=== PATIENT | male | born 1960 | race Caucasian/White ===

== ENCOUNTER → 2017-04-17 | Outpatient (CLI) | payer OTHER ==
[~2017-04-17] MED LIST: ALEV220C2 PO
[2017-04-17 10:34] LABS: MEAN CORPUSCULAR HEMOGLOBIN 29.4 pg (27.0-33.0); MEAN CORPUSCULAR HGB CONC 33.2 g/dl (32.0-36.5); MEAN CORPUSCULAR VOLUME 88.7 fl (80.0-96.0); PLATELET COUNT, AUTOMATED 211 10^3/uL (150-450); RED CELL DISTRIBUTION WIDTH 12.7 % (11.5-14.5); WHITE BLOOD COUNT 4.9 10^3/uL (4.0-10.0)
[2017-04-17 10:50] LABS: INR 1.04
[2017-04-17 11:05] LABS: ERYTHROCYTE SEDIMENTATION RATE 6 mm/hr (0-20)
[2017-04-17 11:23] LABS: ALBUMIN 4.1 GM/DL (3.2-5.2); ALBUMIN/GLOBULIN RATIO 1.37 (1.00-1.93); ALKALINE PHOSPHATASE 81 U/L (45-117); ALT/SGPT 29 U/L (12-78); ANION GAP 7 MEQ/L (8-16); AST/SGOT 20 U/L (7-37); BILIRUBIN,TOTAL 0.6 MG/DL (0.2-1.0); BLOOD UREA NITROGEN 15 MG/DL (7-18); CARBON DIOXIDE LEVEL 29 MEQ/L (21-32); CHLORIDE LEVEL 106 MEQ/L (98-107); CREATININE FOR GFR 0.87 MG/DL (0.70-1.30); GLOMERULAR FILTRATION RATE > 60.0 (>56); GLUCOSE, FASTING 103 MG/DL (70-105); POTASSIUM SERUM 4.2 MEQ/L (3.5-5.1); SODIUM LEVEL 142 MEQ/L (136-145); TOTAL PROTEIN 7.1 GM/DL (6.4-8.2)
--- NOTE | 2017-04-17 11:32 | ECGEPIP ---
Stationary ECG Study [facility] Test Date: 2017-04-17 Pat Name: JORGE MCKOY Department: Room: - Gender: M [employer]: VIRGEN : 1960 Requested By: Rell Bruner Order Number: [id number] Reading MD: Edmond Carbone Measurements Intervals [place] Rate: 72 P: 67 HI: 183 QRS: 60 QRSD: 97 T: 60 QT: 358 QTc: 392 Interpretive Statements SINUS RHYTHM Early repolarization. Within normal limits. No prior ECG available for comparison at the time of interpretation. Electronically Signed On 04-17-2017 11:31:47 EST by Edmond Carbone
--- NOTE | 2017-04-17 14:54 | REP ---
PA and lateral chest: Comparison is 10/08/2012. The lung [place] are clear. The cardiac size is normal The mady, mediastinum, and bony thorax are unremarkable. Impression: Negative PA and lateral chest. There are surgical clips in the abdominal right upper quadrant noted incidentally. There is no interval change. Signed by Lloyd Anaya MD 04/17/2017 02:46 P
== END ==
LOC: M ADMPAT 09:16
PROVIDERS: ATTEND Orthopaedic Surgery
DX: M17.12 Unilateral primary osteoarthritis, left knee (principal)

== ENCOUNTER 2017-06-11 05:58 | Inpatient (IN) | payer OTHER ==
[2017-06-11] MEDS ORDERED: ceFAZolin 2 GM/D5W 50 ML IV BAG (J0690 PER 500MG) As Ordered (06:07)
[2017-06-11] MEDS: LR 1,000 ML IV ×5 (06:30→21:20)
[2017-06-11] MEDS ORDERED: fentaNYL 100 MCG/2 ML INJECTION (J3010) As Ordered ×2 (06:43→07:49)
[2017-06-11] MEDS ORDERED: MIDAZOLAM INJ 2 MG/2 ML VIAL (J2250) As Ordered ×2 (06:43→07:49)
[2017-06-11] MEDS: MIDAZOLAM INJ 2 MG/2 ML VIAL (J2250) IV (07:19)
[2017-06-11] MEDS: fentaNYL 100 MCG/2 ML INJECTION (J3010) IV (07:19)
[2017-06-11] MEDS ORDERED: PROPOFOL 200 MG/20 ML VIAL As Ordered ×2 (07:49)
[2017-06-11] MEDS ORDERED: LIDOCAINE 2% INJ 100 MG/5 ML SDV (FOR ANES.) As Ordered (07:49)
[2017-06-11] MEDS: TRANEXAMIC ACID 100 MG/ML 10ML VIAL As Ordered (08:10)
[2017-06-11] MEDS: ceFAZolin 1GM INJ (J0690 PER 500MG) As Ordered (08:10)
[2017-06-11] MEDS: EPINEPHrine INJ 1 MG/ML 1ML AMP As Ordered (08:10)
[2017-06-11] MEDS: BUPIVACAINE LIPOSOME/PF 1.3% 20 ML VIAL (13.3MG/ML)(EXPAREL) As Ordered (08:11)
[2017-06-11] MEDS ORDERED: ONDANSETRON 4MG/2ML VIAL (J2405) As Ordered (08:20)
[2017-06-11] MEDS ORDERED: EPINEPHrine INJ 1 MG/ML 1ML AMP (08:59)
[2017-06-11] MEDS ORDERED: ROPIvacaine 0.5% 30 ML INJECTION (J2795 PER 1MG) (08:59)
[2017-06-11] MEDS ORDERED: EPIDURAL/PCA KEYS XX (09:30)
[2017-06-11] MEDS ORDERED: NALBUPHINE HCL 10 MG/ML AMP (J2300) IV (09:30)
[2017-06-11] MEDS ORDERED: NALOXONE INJ 0.4 MG/1 ML VIAL (J2310) IV (09:30)
[2017-06-11] MEDS ORDERED: diphenhydrAMINE INJ 50MG/ML VIAL (J1200) IV (09:30)
[2017-06-11] MEDS ORDERED: MORPHINE 1MG/ML IN 0.9% NACL 100ML IV BAG IV (09:30)
[2017-06-11] MEDS ORDERED: ACETAMINOPHEN TAB 650MG DOSE (2X325MG) PO (09:45)
[2017-06-11] MEDS ORDERED: fentaNYL 100 MCG/2 ML INJECTION (J3010) IV (09:45)
[2017-06-11] MEDS ORDERED: FLEET ENEMA PR (09:45)
[2017-06-11] MEDS ORDERED: PERCOCET 5MG/325MG TAB PO (09:45)
[2017-06-11] MEDS ORDERED: MORPHINE 10 MG/ML 1ML VIAL IV (09:45)
[2017-06-11] MEDS: ACETAMINOPHEN TAB 650MG DOSE (2X325MG) PO (11:32)
[2017-06-11] MEDS: ONDANSETRON 4MG/2ML VIAL (J2405) IV ×2 (11:40→18:30)
[2017-06-11] MEDS: METOCLOPRAMIDE INJ 10MG/2ML VIAL (J2765) IV (11:42)
[2017-06-11] MEDS: WARFARIN SOD 5 MG TAB PO (16:12)
[2017-06-12] MEDS ORDERED: PERCOCET 5MG/325MG TAB PO (06:45)
[2017-06-12] MEDS ORDERED: ONDANSETRON 4 MG TAB (S0181) PO (06:45)
[2017-06-12 07:14] LABS: HEMATOCRIT 38.2 % (42.0-52.0); HEMOGLOBIN 12.6 g/dl (14.0-18.0); MEAN CORPUSCULAR HEMOGLOBIN 28.8 pg (27.0-33.0); MEAN CORPUSCULAR VOLUME 87.4 fl (80.0-96.0); PLATELET COUNT, AUTOMATED 182 10^3/uL (150-450); RED BLOOD COUNT 4.37 10^6/uL (4.30-6.10); RED CELL DISTRIBUTION WIDTH 12.7 % (11.5-14.5); WHITE BLOOD COUNT 7.6 10^3/uL (4.0-10.0)
[2017-06-12] MEDS: ONDANSETRON 4MG/2ML VIAL (J2405) IV (08:54)
[2017-06-12] MEDS: MOM 30ML SUSPENSION UDC PO ×2 (09:18→13:54)
[2017-06-12] MEDS: SENOKOT S TAB PO (09:19)
[2017-06-12] MEDS: MIRALAX *UNIT DOSE* 17GM PACKET PO (09:19)
[2017-06-12] MEDS: PERCOCET 5MG/325MG TAB PO ×2 (09:40→13:55)
[2017-06-12 10:46] LABS: INR 1.56; PROTHROMBIN TIME 19.1 SECONDS (12.4-14.5)
[2017-06-12] MEDS: INFLUENZA QUADRIVALENT PF VACCINE 0.5ML SYRINGE (90686) IM (16:12)
[2017-06-12] MEDS ORDERED: WARFARIN SOD 5 MG TAB PO (17:00)
== END 2017-06-12 17:45 | disposition home health service (06) | DRG 470 ==
LOC: M OR 05:58 → M MS5PR 12:30
PROC: 0SRD0J9 Replacement of Left Knee Joint with Synthetic Substitute, Cemented, Open Approach (ICD-10-PCS; principal; 2017-06-11 07:30)
DX: M17.12 Unilateral primary osteoarthritis, left knee (principal)

== ENCOUNTER → 2017-06-28 | Outpatient (REF) | payer OTHER ==
[2017-06-28 11:19] LABS: INR 2.11; PROTHROMBIN TIME 24.4 SECONDS (12.4-14.5)
== END ==
LOC: M LABDRAW1 10:28
DX: Z79.01 Long term (current) use of anticoagulants (principal)

== ENCOUNTER → 2017-07-02 | Outpatient (REF) | payer OTHER ==
[2017-07-02 18:18] LABS: PROTHROMBIN TIME 22.4 SECONDS (12.4-14.5)
== END ==
LOC: M LABDRAW1 17:00
DX: Z79.01 Long term (current) use of anticoagulants (principal)

== ENCOUNTER → 2017-07-04 | Outpatient (REF) | payer OTHER ==
[2017-07-04 19:52] LABS: INR 1.45
== END ==
LOC: M LABDRAW1 17:04
DX: Z51.81 Encounter for therapeutic drug level monitoring (principal); Z79.01 Long term (current) use of anticoagulants

== ENCOUNTER → 2021-12-13 | Outpatient (CLI) | payer OTHER ==
[~2021-12-13] MED LIST changes: +COUM2.5T17 PO; +PERC5TAB12 PO
[2021-12-13 12:37] LABS: BASO # 0.1 10^3/uL (0.0-0.2); BASO % 1.4 % (0.0-1.0); EOS # 0.1 10^3/uL (0.0-0.5); EOS % 2.8 % (0.0-3.0); HEMATOCRIT 48.2 % (42.0-52.0); HEMOGLOBIN 16.1 g/dl (13.5-17.5); LYMPH # 0.9 10^3/uL (1.5-5.0); LYMPH % 18.1 % (24.0-44.0); MEAN CORPUSCULAR HGB CONC 33.4 g/dl (32.0-36.5); MEAN CORPUSCULAR VOLUME 89.8 fl (80.0-96.0); MONO # 0.4 10^3/uL (0.0-0.8); MONO % 7.3 % (2.0-8.0); NEUTROPHILS # 3.5 10^3/uL (1.5-8.5); NEUTROPHILS % 70.2 % (36.0-66.0); PLATELET COUNT, AUTOMATED 202 10^3/uL (150-450); RED BLOOD COUNT 5.37 10^6/uL (4.30-6.10)
[2021-12-13 13:24] LABS: ALBUMIN 4.1 GM/DL (3.2-5.2); ALT/SGPT 24 U/L (12-78); AMYLASE 39 U/L (25-115); BILIRUBIN,TOTAL 1.2 MG/DL (0.2-1.0); BLOOD UREA NITROGEN 13 MG/DL (7-18); CALCIUM LEVEL 9.2 MG/DL (8.8-10.2); CARBON DIOXIDE LEVEL 27 MEQ/L (21-32); CHLORIDE LEVEL 104 MEQ/L (98-107); CREATININE FOR GFR 1.04 MG/DL (0.70-1.30); GLOMERULAR FILTRATION RATE > 60.0 (>49); GLUCOSE, FASTING 93 MG/DL (70-100); LIPASE 105 U/L (73-393); POTASSIUM SERUM 3.7 MEQ/L (3.5-5.1); SODIUM LEVEL 138 MEQ/L (136-145); TOTAL PROTEIN 7.3 GM/DL (6.4-8.2)
== END ==
LOC: M WUC 09:20
PROVIDERS: ATTEND Physician Assistant
DX: K59.00 Constipation, unspecified (principal)

== ENCOUNTER → 2022-02-13 | Outpatient (CLI) | payer OTHER ==
[~2022-02-13] MED LIST changes: +BRIM0.2S13 OU; +LATA0.0015 OU; +ZYRTTAB8 PO
== END ==
LOC: M LABSMTC 10:14
PROVIDERS: ATTEND Anesthesiology
DX: Z01.812 Encounter for preprocedural laboratory examination (principal); Z20.822 Contact with and (suspected) exposure to COVID-19

== ENCOUNTER 2022-02-16 11:27 | Day surgery (SDC) | payer OTHER ==
[~2022-02-16] VITALS: Ht 167.6 cm; Wt 84.8 kg
[~2022-02-16 11:27] MED LIST changes: +NS 1,000 ML IV ONE
== END 2022-02-16 13:38 | disposition home or self-care (01) ==
LOC: M OPP 11:27
PROVIDERS: ATTEND Surgery
DX: D12.2 Benign neoplasm of ascending colon (principal); D12.5 Benign neoplasm of sigmoid colon; K64.0 First degree hemorrhoids; Z79.899 Other long term (current) drug therapy; H40.9 Unspecified glaucoma; M19.90 Unspecified osteoarthritis, unspecified site; Z85.828 Personal history of other malignant neoplasm of skin; Z87.891 Personal history of nicotine dependence; Z80.3 Family history of malignant neoplasm of breast

== ENCOUNTER → 2023-06-29 | Outpatient (CLI) | payer OTHER ==
[~2023-06-29] MED LIST changes: -NS 1,000 ML IV ONE
== END ==
LOC: M WUC 12:10
PROVIDERS: ATTEND Nurse Practitioner Family
DX: R05.9 Cough, unspecified (principal)

== ENCOUNTER → 2023-08-02 | Outpatient (CLI) | payer OTHER ==
[2023-08-02 12:32] LABS: BASO # 0.1 10^3/uL (0.0-0.2); BASO % 0.9 % (0.0-1.0); EOS # 0.6 10^3/uL (0.0-0.5); EOS % 10.2 % (0.0-3.0); HEMATOCRIT 48.8 % (42.0-52.0); HEMOGLOBIN 15.9 g/dl (13.5-17.5); LYMPH # 1.2 10^3/uL (1.5-5.0); LYMPH % 22.1 % (24.0-44.0); MEAN CORPUSCULAR HEMOGLOBIN 29.3 pg (27.0-33.0); MEAN CORPUSCULAR HGB CONC 32.6 g/dl (32.0-36.5); MONO # 0.5 10^3/uL (0.0-0.8); MONO % 8.4 % (2.0-8.0); NEUTROPHILS # 3.2 10^3/uL (1.5-8.5); PLATELET COUNT, AUTOMATED 188 10^3/uL (150-450); RED BLOOD COUNT 5.42 10^6/uL (4.30-6.10); WHITE BLOOD COUNT 5.5 10^3/uL (4.0-10.0)
[2023-08-02 13:00] LABS: ALKALINE PHOSPHATASE 79 U/L (46-116); ALT/SGPT 26 U/L (7.0-40); AST/SGOT 20 U/L (<34); BILIRUBIN,TOTAL 0.8 MG/DL (0.3-1.2); BLOOD UREA NITROGEN 19 MG/DL (9-23); CALCIUM LEVEL 9.3 MG/DL (8.3-10.6); CARBON DIOXIDE LEVEL 30 MMOL/L (20-31); CHLORIDE LEVEL 107 MMOL/L (98-107); CHOLESTEROL LEVEL 169 MG/DL (<200); CHOLESTEROL RISK RATIO 4.09 (<5); CREATININE FOR GFR 0.92 MG/DL (0.70-1.30); GLOMERULAR FILTRATION RATE > 60.0 (>49); GLUCOSE, FASTING 96 MG/DL (74-106); HDL CHOLESTEROL 41.3 MG/DL (>40); LDL CHOLESTEROL 114.9 MG/DL (<100); NON-HDL-C 127.7 MG/DL; POTASSIUM SERUM 4.5 MMOL/L (3.5-5.1); SODIUM LEVEL 141 MMOL/L (136-145); TOTAL PROTEIN 6.5 G/DL (5.7-8.2); TRIGLYCERIDES LEVEL 64 MG/DL (<150)
[2023-08-02 13:01] LABS: FREE T4 0.97 NG/DL (0.89-1.76)
[2023-08-02 13:02] LABS: THYROID STIMULATING HORMONE 1.969 uIU/ML (0.55-4.78)
[2023-08-02 13:07] LABS: HEMOGLOBIN A1c 5.5 % (4.0-6.0)
== END ==
LOC: M WUC 08:47
PROVIDERS: ATTEND Registered Nurse
DX: Z00.00 Encounter for general adult medical examination without abnormal findings (principal)

== ENCOUNTER 2024-07-25 09:38 | Day surgery (SDC) | payer OTHER ==
[~2024-07-25] VITALS: Ht 167.6 cm; Wt 88.3 kg
[2024-07-25] MEDS ORDERED: LIDOCAINE 2% 100MG/5ML SDV (FOR ANES.) As Ordered ONE (11:13)
[2024-07-25] MEDS ORDERED: propofoL 200 MG/20 ML VIAL As Ordered ONE (11:13)
[2024-07-25] MEDS ORDERED: GLYCOPYRROLATE INJ 0.2 MG/ML 2 ML VIAL As Ordered ONE (11:54)
[2024-07-25 12:14] VITALS: TEMP 97.3
[2024-07-25 12:30] VITALS: BP 117/68; O2SAT 97
== END 2024-07-25 12:33 | disposition home or self-care (01) ==
LOC: M OPP 09:38
PROVIDERS: ATTEND Surgery
DX: D12.2 Benign neoplasm of ascending colon (principal); D12.8 Benign neoplasm of rectum; K64.1 Second degree hemorrhoids; Z86.0100 Personal history of colon polyps, unspecified; Z79.899 Other long term (current) drug therapy
CPT/HCPCS: 45380; 45385; 88305; J1596

== ENCOUNTER → 2025-01-23 | Outpatient (REF) | payer OTHER | LOC: M LAB REF 13:29 | PROVIDERS: ATTEND Ophthalmology | DX: H02.825 Cysts of left lower eyelid (principal) ==